=== PATIENT | male | born 1950 | race Caucasian/White ===

== ENCOUNTER 2019-12-02 09:48 | Outpatient (CLI) | payer BC ==
--- NOTE | 2019-12-02 12:01 | ULT ---
BILATERAL LOWER EXTREMITY VENOUS DOPPLER ULTRASOUND: HISTORY: Bilateral lower extremity edema. TECHNIQUE: Krishnan scale ultrasound with color flow and spectral Doppler imaging of the deep venous systems of the lower extremities was performed bilaterally. FINDINGS: There is good flow, compression, and augmentation noted in the common femoral, femoral, deep femoral, popliteal, posterior tibial, and greater saphenous veins on either side. IMPRESSION: No evidence of deep vein thrombosis in either lower extremity. POS: [facility]
== END 2019-12-02 09:49 | disposition home or self-care (01) ==
LOC: ULT 09:48
PROVIDERS: ATTEND Internal Medicine Cardiovascular Disease
DX: R60.0 Localized edema (principal)
CPT/HCPCS: 93970

== ENCOUNTER 2020-01-07 05:13 | Outpatient (CLI) | payer BC, OTHER ==
[2020-01-07 16:45] LABS: #Basophils 0.1 thou/uL (0.0-0.2); #Eosinphils 0.2 thou/uL (0.0-0.7); #Lymphocytes 1.5 thou/uL (1.20-3.40); #Monocytes 0.5 thou/uL (0.11-0.59); #Neutrophils 4.6 thou/uL (1.40-6.50); %Eosinophils 2.9 % (0.0-10.0); %Lymphocytes 21.4 % (21.0-51.0); %Monocytes 7.6 % (0.0-10.0); %Neutrophils 67.1 % (42.0-75.0); Mean Corpuscular Hemoglobin 33.4 pg (27.0-31.0); Mean Corpuscular Volume 98.4 fL (78.0-98.0); Mean Platelet Volume 8.2 fL (7.4-10.4); Platelet Count 137 thou/uL (130-400); RBC Distribution Width 12.1 % (11.5-14.5); White Blood Cell (WBC) Count 6.8 thou/uL (4.8-10.8)
[2020-01-07 16:52] LABS: Albumin 4.5 g/dL (3.4-4.8); Anion Gap 12 mmol/L (10-20); BUN (Urea Nitrogen) 18 mg/dL (8.4-25.7); Bilirubin, Total 0.6 mg/dL (0.2-1.2); Calc. Creatinine Clearance 0 mL/min (70-130); Calcium 8.9 mg/dL (7.8-10.44); Carbon Dioxide 25 mmol/L (23-31); Chloride 104 mmol/L (98-107); Estimated GFR-MDRD 70; Glucose 144 mg/dL (80-115); Potassium 4.3 mmol/L (3.5-5.1); Protein, Total 6.9 g/dL (5.8-8.1); Sodium 137 mmol/L (136-145)
[2020-01-07 16:53] LABS: ALT (SGPT) 60 U/L (8-55); AST (SGOT) 33 U/L (5-34); Alkaline Phosphatase 43 U/L (40-110); Globulin 2.4 g/dL (2.4-3.5)
[2020-01-08 12:33] LABS: SARS-CoV-2 MS2 Positive; SARS-CoV-2 N Gene Negative; SARS-CoV-2 S Gene Negative; SARS-CoV-2 orf1ab Negative
== END 2020-01-07 05:14 | disposition home or self-care (01) ==
LOC: LABBT 05:13
PROVIDERS: ATTEND Internal Medicine Cardiovascular Disease
DX: Z01.818 Encounter for other preprocedural examination (principal); Z11.59 Encounter for screening for other viral diseases; R94.39 Abnormal result of other cardiovascular function study
CPT/HCPCS: 80053; 85025; 87635; 93005; 93010; U0003

== ENCOUNTER 2020-01-11 06:03 | Day surgery (SDC) | payer BC ==
[2020-01-06 13:49] VITALS: BMI 32.7
[2020-01-11] MEDS ORDERED: Heparin 10,000 UNITS/1 ML VIAL ONE (06:34)
[2020-01-11] MEDS ORDERED: Midazolam HCl 2 mg/2 ml Vial ONE (07:57)
[2020-01-11] MEDS ORDERED: Fentanyl 100 MCG/2 ML VIAL ONE (07:58)
[2020-01-11] MEDS ORDERED: Bivalirudin 250 MG VIAL ONE (08:20)
[2020-01-11] MEDS ORDERED: Clopidogrel Bisulfate 300 MG TAB ONE (08:26)
[2020-01-11] MEDS ORDERED: Iopamidol 370 76% 100 ML VIAL ONE (09:42)
== END 2020-01-11 17:50 | disposition home or self-care (01) ==
LOC: CCL 06:03
PROVIDERS: ATTEND Internal Medicine Cardiovascular Disease
PROC: 4A023N7 Measurement of Cardiac Sampling and Pressure, Left Heart, Percutaneous Approach (ICD-10-PCS; principal; 2020-01-11)
PROC: B2011ZZ Plain Radiography of Multiple Coronary Arteries using Low Osmolar Contrast (ICD-10-PCS; principal; 2020-01-11)
DX: I25.10 Atherosclerotic heart disease of native coronary artery without angina pectoris (principal); I10 Essential (primary) hypertension; E78.00 Pure hypercholesterolemia, unspecified; E78.5 Hyperlipidemia, unspecified; G47.33 Obstructive sleep apnea (adult) (pediatric); I87.2 Venous insufficiency (chronic) (peripheral); Z79.82 Long term (current) use of aspirin; Z79.899 Other long term (current) drug therapy; Z88.8 Allergy status to other drugs, medicaments and biological substances
CPT/HCPCS: 36415; 80061; 85347; 92928; 93005; 93010; 93458; 97139; C1874; C9600; J0583; J1644; J2250; J3010; Q9967